=== PATIENT | female | born 1970 | race Caucasian/White ===

== ENCOUNTER 2018-03-04 11:34 | Emergency (ER) | payer OTHER, SELFPAY ==
[2018-03-04 11:45] VITALS: BP 149/90; PULSE 79; RESP 16; TEMP 36.6; O2SAT 100; BMI 32.5
--- NOTE | 2018-03-04 12:03 | ED_ITS ---
HPI - Female Genitourinary General Chief complaint: Urogenital-Female Stated complaint: severe back pain Time Seen by Provider: 03/04/18 12:01 Source: patient Mode of arrival: ambulatory Limitations: no limitations History of Present Illness HPI Narrative: 47-year-old female here for evaluation approximately 3 weeks of left-sided flank pain. Patient states that this morning it started radiate around to her left lower quadrant. Denies any urinary symptoms. No fevers. No nausea vomiting. Patient has never had a kidney stone before. No rashes. Has been taking ibuprofen for this prior to arrival no prior abdominal surgeries. Related Data Home Medications Medication Instructions Recorded Confirmed estradiol 1 mg PO QDAY #0 02/02/17 Previous Rx's Medication Instructions Recorded ciprofloxacin HCl 500 mg PO BID 7 Days #14 tab 03/04/18 hydrocodone-acetaminophen [[place]] 1 tab PO Q6H PRN #7 tab 03/04/18 ondansetron [Zofran ODT] 4 mg PO Q6-8H PRN #10 tab 03/04/18 Allergies Allergy/AdvReac Type Severity Reaction Status Date / Time No Known Allergies Allergy Uncoded 08/19/17 11:55 Review of Systems Constitutional Denies fatigue and Denies fever(s) Cardiovascular Denies chest pain, Denies palpitations and Denies dyspnea Respiratory Denies cough and Denies dyspnea Gastrointestinal Gastrointestinal: Reports abdominal pain, Denies change in bowel habits, Denies nausea and Denies vomiting Genitourinary Denies hematuria, Denies dysuria, Reports flank pain and Denies vaginal discharge Musculoskeletal Denies myalgias and Denies arthralgias Integumentary/Breasts Denies lesions and Denies rash Endocrine Denies fatigue and Denies palpitations Hematologic/Lymphatic Denies easy bleeding and Denies easy bruising [facility] Medical History Healthy adult (Acute) Surgical History No pertinent past surgical history (Acute) Social History Smoking Status: Never smoker Exam Initial Vital Signs Initial Vital Signs: Vital Signs Temperature 97.9 F 03/04/18 11:45 Pulse Rate 79 03/04/18 11:45 Respiratory Rate 16 03/04/18 11:45 Blood Pressure 149/90 H 03/04/18 11:45 Pulse Oximetry 100 03/04/18 11:45 Const General: cooperative, healthy appearing, well developed, well groomed and No acute distress Orientation: alert, awake and oriented x3 HENMT Head: normal to inspection and normocephalic Resp Effort & Inspection: normal respiratory effort Auscultation: clear to auscultation bilaterally Cardio Rate: regular rate Rhythm: regular rhythm Pulses: radial pulses present GI Inspection: non-distended Palpation: soft, No firm and No tender General: CVA tenderness Back/Spine/Pelvis Back: CVA tenderness left Skin Lesions: no lesions Rashes: no rashes Neuro General: alert, awake and oriented x3 Extrem General: normal to inspection and capillary refill normal Psych Appearance: grossly normal and well kempt Course Orders Ordered: ED Orders 03/04/18 11:40 Urine Culture Stat Urine Microscopic Stat Discontinued Medications Hydrocodone Bitart/Acetaminophen ([place] 5/325) 1 tab PO NOW ONE Stop: 03/04/18 12:40 Last Admin: 03/04/18 12:48 Dose: 1 tab Ciprofloxacin (Cipro) 500 mg PO NOW ONE Stop: 03/04/18 12:40 Last Admin: 03/04/18 13:12 Dose: 500 mg Vital Signs - 8 hr 03/04/18 11:45 03/04/18 12:49 Temperature 97.9 F Pulse Rate 79 78 Respiratory Rate 16 20 Blood Pressure 149/90 H Blood Pressure [Right Arm] 141/75 H Pulse Oximetry 100 98 MDM - Female Genitourinary Lab Data Lab Results 03/04/18 Range/Units 11:40 Urine RBC None seen (0-5/HPF) Urine WBC 1-5/hpf (0-5/HPF) Ur Squamous Epith Cells 1-5 /hpf Urine Bacteria Many (>30) H (None) Ur Culture Indicated? Specimen cultured Micro UA Comment Not Reportable Urine Dip Bedside Urine Glucose Negative Bedside Urine Bilirubin - Negative Bedside Urine Ketone - Negative Urine Specific [place] 1.030 Bedside Urine Occult Blood - Negative Bedside Urine pH 6.0 Bedside Urine Protein - Negative Bedside Urine Urobilinogen - Negative Bedside Urine Nitrite + Positive Bedside Urine Leukocytes - Negative Esterase MDM Narrative Medical decision making narrative: Patient has had 3 weeks of symptoms. She stated that the last time that she had pyelonephritis she waited this long to come into the emergency department. She has never had a kidney stone before. She has no rashes on her side consistent with zoster. Patient has no blood in her urine. Considered scanning her for kidney stone caliber since she is nitrite positive on the urine, no blood, and the fact she states this feels like the last time she had pyelo will hold on further workup for now. She was given her 1st dose of antibiotics here in the emergency department and tolerated without problems. I feel that a trial of home oral antibiotics is warranted. She was given return precautions. She expressed understanding and agreement plan Discharge Plan Departure Patient Disposition: Home Clinical Impression: Pyelonephritis Instructions: DI for Kidney Infection Activity Restrictions/Additional Instructions: you were given the 1st dose of antibiotics here in the emergency department. Take all the medications as instructed. Increase her fluid intake. Return to the emergency department for any new symptoms, inability to take the antibiotics , worsening pain, it development of a rash, or any other concerning symptoms Prescriptions: New hydrocodone-acetaminophen [[place]] 5-325 mg tablet 1 tab PO Q6H PRN (Reason: pain) Qty: 7 RF: 0 ciprofloxacin HCl 500 mg tablet 500 mg PO BID 7 Days Qty: 14 RF: 0 ondansetron [Zofran ODT] 4 mg tablet,disintegrating 4 mg PO Q6-8H PRN (Reason: nausea and vomiting) Qty: 10 RF: 0 No Action estradiol 1 MG tablet 1 mg PO QDAY Qty: 0 RF: 0
[2018-03-04 12:42] LABS: RBC Urine None Seen (0-5/HPF)
[2018-03-04] MEDS: HYDROCODONE/ACET 5/325 TABLET 1 TAB PO (12:48)
[2018-03-04 12:49] VITALS: BP 141/75; PULSE 78; RESP 20; O2SAT 98
[2018-03-04 12:54] LABS: Squamous Epithelial Cell Urine 1-5 /HPF; WBC Urine 1-5/HPF (0-5/HPF)
[2018-03-04 12:55] LABS: Bacteria Urine Many (>30); Culture Indicated Urine Specimen Cultured
[2018-03-04] MEDS: CIPROFLOXACIN 500 MG TABLET PO (13:12)
== END 2018-03-04 13:52 | disposition home or self-care (01) ==
PROVIDERS: Emergency Provider Emergency Medicine; PCP Physician Assistant
DX: N12 Tubulo-interstitial nephritis, not specified as acute or chronic (principal)
CPT/HCPCS: 81003; 81015; 87077; 87086; 87186; 99282; 99283

== ENCOUNTER → 2018-03-08 12:48 | Outpatient (CLI) | payer OTHER, SELFPAY ==
--- NOTE | 2018-03-08 | DI.US.S_ITS ---
PROCEDURE: US RENAL COMPLETE INDICATIONS: Other dorsalgia TECHNIQUE: Real-time scanning was performed of the kidneys and bladder, with image documentation. COMPARISON: None. FINDINGS: Kidneys: Kidneys are normal in size. Right kidney measures 10.4 cm long; left kidney measures 12.1 cm long. Right renal cortical thickness is 1.4 cm; left renal cortical thickness is 1.8 cm. Renal cortical echotexture is normal. No hydronephrosis or nephrolithiasis. No suspicious solid mass lesions. Bladder: Pre-void bladder volume is 164 mL. Post-void residual is 0 mL. Pre-void images demonstrate no intraluminal masses or stones. On pre-void images, both ureteral jets are noted with color Doppler interrogation. (Of note, ureteral jets may not be detectable in up to 25% of cases due to insufficient differences in specific gravity between ureteral and bladder urine). Miscellaneous: No free pelvic fluid. IMPRESSION: No evidence for urinary tract stone or obstruction but there is a cortical cyst measuring up to 6.1 x 7.5 x 6.4 cm at the inferior pole of the left kidney. Normal bladder function. Dictated by: Refugio Montes De Oca M.D. on 03/08/2018 at 16:02 Approved by: Refugio Montes De Oca M.D. on 03/08/2018 at 16:03
== END ==
PROVIDERS: PCP Physician Assistant; Visit Provider Physician Assistant
DX: N28.1 Cyst of kidney, acquired (principal); M54.89 Other dorsalgia
CPT/HCPCS: 76770

== ENCOUNTER → 2018-04-15 13:35 | Outpatient (CLI) | payer OTHER, SELFPAY ==
--- NOTE | 2018-04-15 | DI.RAD.S_ITS ---
PROCEDURE: XR CHEST 2V INDICATIONS: BRONCHITIS TECHNIQUE: 2 views of the chest were acquired. COMPARISON: None. FINDINGS: Surgical changes and devices: None. Lungs and pleura: No pleural effusions or pneumothorax. Lungs are clear. Mediastinum: Mediastinal contours are normal. Heart size is normal. Bones and chest wall: No suspicious bony abnormalities. Soft tissues appear unremarkable. Surgical clips in the right neck. IMPRESSION: No acute cardiopulmonary disease. Dictated by: Georgiana Ferrer M.D. on 04/15/2018 at 16:03 Approved by: Georgiana Ferrer M.D. on 04/15/2018 at 16:04
== END ==
PROVIDERS: PCP Physician Assistant; Visit Provider Student in an Organized Health Care Education/Training Program
DX: J20.9 Acute bronchitis, unspecified (principal)
CPT/HCPCS: 71046

== ENCOUNTER 2019-09-09 19:04 | Emergency (ER) | payer OTHER, SELFPAY ==
[2019-09-09 19:09] VITALS: BP 156/81; PULSE 105; RESP 14; TEMP 36.9; O2SAT 95; BMI 32.4
--- NOTE | 2019-09-09 19:16 | DI.RAD.S_ITS ---
PROCEDURE: XR FOOT LT MIN 3V INDICATIONS: slipped and fell TECHNIQUE: 3 views of the foot were acquired. COMPARISON: None. FINDINGS: Bones: No fractures or dislocations. No suspicious bony lesions. Well-defined plantar calcaneal enthesophyte is seen. Soft tissues: No tibiotalar joint effusion. Achilles tendon appears normal. IMPRESSION: No acute left foot fracture or dislocation. Dictated by: Nikhil Lisa M.D. on 09/09/2019 at 19:37 Approved by: Nikhil Lisa M.D. on 09/09/2019 at 19:38
--- NOTE | 2019-09-09 19:16 | DI.RAD.S_ITS ---
PROCEDURE: XR KNEE LT 3V INDICATIONS: slipped and fell TECHNIQUE: 3 views of the knee were acquired. COMPARISON: None. FINDINGS: Bones: No fractures or dislocations. No suspicious bony lesions. Soft tissues: No joint effusion. No suspicious soft tissue calcifications. IMPRESSION: No gross acute left knee fracture or dislocation. No significant joint effusion. Dictated by: Nikhil Lisa M.D. on 09/09/2019 at 19:36 Approved by: Nikhil Lisa M.D. on 09/09/2019 at 19:37
[2019-09-09] MEDS: HYDROCODONE/ACET 5/325 TABLET 1 TAB PO (20:02)
[2019-09-09] MEDS: CYCLOBENZAPRINE 10 MG TABLET PO (20:03)
--- NOTE | 2019-09-09 20:35 | ED_ITS ---
HPI - Extremity Injury (Lower) <MARCOS Lan-BC - Last Filed: 09/09/19 21:12> General Chief Complaint: Extremity Injury, Lower Stated Complaint: FALL LEFT KNEE PAIN Time Seen by Provider: 09/09/19 19:27 Source: patient Mode of arrival: Wheelchair Limitations: no limitations History of Present Illness HPI Narrative: The patient is a 49-year-old female nonsmoker who denies pertinent medical history presents with a chief complaint of left knee pain after ground level fall. She states she was trying to surprised her , and jammed her left foot into the base of the shower, twisted her knee in and out before falling. She states then she felt pops in her foot as well as both sides of her knee. She denies any necked or back pain period she denies hitting her head period she took 800 mg of ibuprofen. Related Data Home Medications Medication Instructions Recorded Confirmed estradiol 1 mg PO QDAY #0 02/02/17 03/04/18 Previous Rx's Medication Instructions Recorded hydrocodone-acetaminophen [Victor] 1 tab PO Q6H PRN #7 tab 03/04/18 ondansetron [Zofran ODT] 4 mg PO Q6-8H PRN #10 tab 03/04/18 cyclobenzaprine 10 mg PO TID PRN #14 tab 09/09/19 hydrocodone-acetaminophen 1 tab PO Q4-6H PRN #7 tab 09/09/19 Allergies Allergy/AdvReac Type Severity Reaction Status Date / Time No Known Drug Allergies Allergy Verified 09/09/19 19:13 Review of Systems <JULIO Lan - Last Filed: 09/09/19 21:12> Review of Systems Narrative: GENERAL: Denies chills, fatigue, malaise, fever, sweats. HEENT: Denies sinus pain, ear pain, sore throat, difficulty swallowing, dizziness. RESPIRATORY: Denies dyspnea, cough, wheezing, hemoptysis, sputum. CARDIOVASCULAR: Denies chest pain, palpitations, orthopnea, edema, GASTROINTESTINAL: Denies nausea, vomiting, abdominal pain, diarrhea, constipation, melena. : Denies dysuria, frequency, incontinence, hematuria, urinary retention. MUSCULOSKELETAL: See HPI SKIN: Denies rash, skin lesions, or other NEUROLOGIC: Denies weakness, headache, numbness, change in speech, confusion, seizures, incoordination. PSYCHIATRIC: No concerning psychosocial issues. 12 point review of systems is negative except for those stated above Patient History <Tamiko GermainJULIO balderas - Last Filed: 09/09/19 21:12> Social History Smoking Status: Never smoker Smoking Status: Never smoker alcohol intake frequency: other Substance Use Type: does not use Exam <Tamiko GermainJULIO balderas - Last Filed: 09/09/19 21:12> Narrative Exam Narrative: GENERAL: This is a well-nourished, well-developed patient, in mild distress. HEAD: Atraumatic. Normocephalic. No temporal or scalp tenderness. EYES: Pupils equal round and reactive. Extraocular motions intact. No scleral icterus. No injection or drainage. ENT: Nose without bleeding, purulent drainage or septal hematoma. Throat without erythema, tonsillar hypertrophy or exudate. Uvula midline. Airway patent. NECK: Trachea midline. No JVD or lymphadenopathy. Supple, nontender, no men ingeal signs. CARDIOVASCULAR: Regular rate and rhythm RESPIRATORY: Clear to auscultation. Breath sounds equal bilaterally. No wheezes, rales, or rhonchi. EXTREMITIES: General pain to palpation noted left knee, a decreased flexion noted left knee, able to flex to 90?. Able to lift and her leg off stretcher. Able to extend leg fully on stretcher when distracted. Unable to tolerate ligamentous testing. Positive pedal pulses. Pain to palpation dorsum left foot. Capillary refill less than 2 seconds all left toes. BACK: Nontender without deformity or crepitance. No flank tenderness. No pain to palpation CT or L-spine. NEURO: AOx3. SKIN: No rash or erythema on visible skin left knee or left foot Initial Vital Signs Initial Vital Signs: Vital Signs Temperature 98.4 F 09/09/19 19:09 Pulse Rate 105 H 09/09/19 19:09 Respiratory Rate 14 09/09/19 19:09 Blood Pressure 156/81 H 09/09/19 19:09 Pulse Oximetry 95 09/09/19 19:09 <Jamar Connelly DO - Last Filed: 09/09/19 21:59> Initial Vital Signs Initial Vital Signs: Vital Signs Temperature 98.4 F 09/09/19 19:09 Pulse Rate 105 H 09/09/19 19:09 Respiratory Rate 14 09/09/19 19:09 Blood Pressure 156/81 H 09/09/19 19:09 Pulse Oximetry 95 09/09/19 19:09 Procedures <JULIO Lan - Last Filed: 09/09/19 21:12> Orthopedic Splinting/Casting Injury #1: Side: left Lower Extremity Injury Location: knee Lower Extremity Immobilizer: Loco wrap Injury #2: Side: left Lower Extremity Injury Location: foot Lower Extremity Immobilizer: post-op shoe Post splinting neuro exam: intact Post splinting vascular exam: intact Placed by: Nursing Scores <JULIO Lan - Last Filed: 09/09/19 21:12> GCS [place] coma scale eye opening: Spontaneous Leslie coma scale verbal response: Orientated Leslie coma scale motor response: Obey commands Leslie coma scale total score: 15 Nexus Score for C-Spine Focal Neurologic deficit present: No Midline spinal tenderness present: No Altered level of conciousness present: No Intoxication present: No Distracting Injury Present: No Nexus Criteria for C-spine: 0 Course <JULIO Lan - Last Filed: 09/09/19 21:12> Orders Ordered: ED Orders 09/09/19 19:16 XR foot LT min 3V Stat XR knee LT 3V Stat Discontinued Medications Hydrocodone Bitart/Acetaminophen (Victor 5/325) 1 tab PO NOW ONE Stop: 09/09/19 19:56 Last Admin: 09/09/19 20:02 Dose: 1 tab Documented by: BRIE Hydrocodone Bitart/Acetaminophen (Vicodin 5/325 Prepack) 1 bottle MISC SEEINSTR ONE Stop: 09/09/19 20:49 Last Admin: 09/09/19 21:07 Dose: 1 bottle Documented by: SANKET Cyclobenzaprine HCl (Flexeril) 10 mg PO NOW ONE Stop: 09/09/19 19:56 Last Admin: 09/09/19 20:03 Dose: 10 mg Documented by: BRIE Cyclobenzaprine HCl (Flexeril 10 Mg Prepack) 1 bottle MISC SEEINSTR ONE Stop: 09/09/19 20:49 Last Admin: 09/09/19 21:07 Dose: 1 bottle Documented by: SANKET Vital Signs Vital signs: Vital Signs - 8 hr 09/09/19 19:09 09/09/19 21:08 Temperature 98.4 F Pulse Rate 105 H 80 Respiratory Rate 14 17 Blood Pressure 156/81 H Blood Pressure [Right Arm] 127/71 Pulse Oximetry 95 98 <Jamar Connelly DO - Last Filed: 09/09/19 21:59> Orders Ordered: ED Orders 09/09/19 19:16 XR foot LT min 3V Stat XR knee LT 3V Stat Discontinued Medications Hydrocodone Bitart/Acetaminophen (Victor 5/325) 1 tab PO NOW ONE Stop: 09/09/19 19:56 Last Admin: 09/09/19 20:02 Dose: 1 tab Documented by: BRIE Hydrocodone Bitart/Acetaminophen (Vicodin 5/325 Prepack) 1 bottle MISC SEEINSTR ONE Stop: 09/09/19 20:49 Last Admin: 09/09/19 21:07 Dose: 1 bottle Documented by: SANKET Cyclobenzaprine HCl (Flexeril) 10 mg PO NOW ONE Stop: 09/09/19 19:56 Last Admin: 09/09/19 20:03 Dose: 10 mg Documented by: BRIE Cyclobenzaprine HCl (Flexeril 10 Mg Prepack) 1 bottle MISC SEEINSTR ONE Stop: 09/09/19 20:49 Last Admin: 09/09/19 21:07 Dose: 1 bottle Documented by: SANKET Vital Signs Vital signs: Vital Signs - 8 hr 09/09/19 19:09 09/09/19 21:08 Temperature 98.4 F Pulse Rate 105 H 80 Respiratory Rate 14 17 Blood Pressure 156/81 H Blood Pressure [Right Arm] 127/71 Pulse Oximetry 95 98 MDM - Extremity Injury (Lower) <JULIO Lan - Last Filed: 09/09/19 21:12> Imaging Data Extremity x-ray #1: Radiologist's Impression: [address] [place] [id number] XRay Report Signed Patient: Charlotte Layton RMR#: [id number] : 1970Acct:[id number] Age/Sex: 49 / FDate of Service: 09/09/19 Loc: ED Accession Number: [id number] Procedure: XR knee LT 3V Ordering Provider: Jamar Connelly D.O. PROCEDURE: XR KNEE LT 3V INDICATIONS: slipped and fell TECHNIQUE: 3 views of the knee were acquired. COMPARISON: None. FINDINGS: Bones: No fractures or dislocations. No suspicious bony lesions. Soft tissues: No joint effusion. No suspicious soft tissue calcifications. IMPRESSION: No gross acute left knee fracture or dislocation. No significant joint effusion. Dictated by: Nikhil Lisa M.D. on 09/09/2019 at 19:36 Approved by: Nikhil Lisa M.D. on 09/09/2019 at 19:37 Extremity x-ray #2: Radiologist's Impression: [address] [place] [address] XRay Report Signed Patient: Charlotte Layton RMR#: [id number] : 1970Acct:[id number] Age/Sex: 49 / FDate of Service: 09/09/19 Loc: ED Accession Number: [id number] Procedure: XR foot LT min 3V Ordering Provider: Jamar Connelly D.O. PROCEDURE: XR FOOT LT MIN 3V INDICATIONS: slipped and fell TECHNIQUE: 3 views of the foot were acquired. COMPARISON: None. FINDINGS: Bones: No fractures or dislocations. No suspicious bony lesions. Well-defined plantar calcaneal enthesophyte is seen. Soft tissues: No tibiotalar joint effusion. Achilles tendon appears normal. IMPRESSION: No acute left foot fracture or dislocation. Dictated by: Nikhil Lisa M.D. on 09/09/2019 at 19:37 Approved by: Nikhil Lisa M.D. on 09/09/2019 at 19:38 [facility] Narrative Medical decision making narrative: The patient is a 49-year-old female who presents with a chief complaint of left foot and knee pain after ground level f all earlier today. She is neurovascularly intact throughout her stay in the emergency department. She has no acute findings on x-ray, though high concern of soft tissue injury given the feelings of instability and popping sensations. I discussed at length that she needs to follow up with primary care provider in the next few days, rest ice compression elevation as well as [id number] pain medications as needed and able. I did give her a small prescription of Victor, as well as Flexeril. I discussed at length coming back to the emergency department for any acute concerns. She repeatedly declines hitting her head, C- spine pain and has a full recollection of the incident. The patient declines crutches as she already has some. Patient has no questions or concerns upon discharge and states understanding of return precautions as well as follow-up care. Discharge Plan Departure Patient Disposition: Home Clinical Impression: Fall from ground level Acute foot pain Qualifiers: Laterality: left Qualified Code(s): M79.672 - Pain in left foot Acute knee pain Qualifiers: Laterality: left Qualified Code(s): M25.562 - Pain in left knee Discharge Date/Time: 09/09/19 21:20 Instructions: How To Perform RICE (Rest, Ice, Compress, Elevate), DI for Foot Pain, DI for Knee Pain Activity Restrictions/Additional Instructions: As I discussed, your x-ray shows no acute fracture. This does not rule out a soft tissue injury such as a ligament or tendon injury. It is important that you follow up with primary care provider, especially if worsening or no improvement. There can be fractures that did not show up on initial x-ray. You have been prescribed narcotic medications. While on these medications you cannot drive or operate heavy machinery. Additionally you cannot sign legal documents or perform any duties such as this. Many people get constipated on narcotic medications so it would be advisable to discuss stool softeners with the pharmacist when you shredder picker your prescription. The Flexeril can also be sedating. Please come back to emergency department for any acute concerns. Please follow- up with primary care provider in the next few days. Please use rest ice compression elevation as well as [id number] pain medications as needed and able. Please be aware that the Victor already has Tylenol in it, so be careful if you take any extra Tylenol that you do not go over the recommended 3 g per day. Prescriptions: New hydrocodone-acetaminophen 5-325 mg tablet 1 tab PO Q4-6H PRN (Reason: pain) Qty: 7 RF: 0 cyclobenzaprine 10 mg tablet 10 mg PO TID PRN (Reason: muscle spasm) Qty: 14 RF: 0 No Action estradiol 1 MG tablet 1 mg PO QDAY Qty: 0 RF: 0 hydrocodone-acetaminophen [Victor] 5-325 mg tablet 1 tab PO Q6H PRN (Reason: pain) Qty: 7 RF: 0 ondansetron [Zofran ODT] 4 mg tablet,disintegrating 4 mg PO Q6-8H PRN (Reason: nausea and vomiting) Qty: 10 RF: 0 Referrals: Indigo Cardoso PA-C [Primary Care Provider] - <Jamar Connelly, - Last Filed: 09/09/19 21:59> [facility] Dr Connelly Co-Sign Statement: I was available for consultation during this patient's emergency department visit. This chart is signed by myself for administrative purposes only. I did not have direct contact with this patient during this visit. They were seen independently by the APC.
[2019-09-09] MEDS: HYDROCODONE/ACET 5/325 PREPACK 1 BOTTLE MISC (21:07)
[2019-09-09] MEDS: CYCLOBENZAPRINE 10 MG PREPACK 1 BOTTLE MISC (21:07)
[2019-09-09 21:08] VITALS: BP 127/71; PULSE 80; RESP 17; O2SAT 98
== END 2019-09-09 21:20 | disposition home or self-care (01) ==
PROVIDERS: Emergency Provider Nurse Practitioner Family; PCP Physician Assistant
DX: M79.672 Pain in left foot (principal); M25.562 Pain in left knee; W18.30XA Fall on same level, unspecified, initial encounter
CPT/HCPCS: 73562; 73630; 99283